=== PATIENT | female | born 1995 | race Caucasian/White ===

== ENCOUNTER 2018-03-04 17:57 | Emergency (ER) | payer OTHER ==
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
[2018-03-04] MEDS ORDERED: Azithromycin TAB* 250 MG PO ONE (20:37)
[2018-03-04] MEDS ORDERED: cefTRIAXone VIAL(*) 250 MG VIAL IM ONE (20:37)
[2018-03-04] MEDS ORDERED: Lidocaine 1%* 5 ML VIAL ONE (20:45)
[2018-03-04 22:24] VITALS: BP 129/63
== END 2018-03-04 22:22 | disposition home or self-care (01) ==
LOC: ED 17:57
DX: T76.21XA Adult sexual abuse, suspected, initial encounter (principal); J45.909 Unspecified asthma, uncomplicated
CPT/HCPCS: 36415; 84702; 96372; 99282; A9270-GY; J0696

== ENCOUNTER 2018-06-01 00:50 | Emergency (ER) | payer OTHER ==
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
[2018-06-01 05:53] VITALS: BP 110/60
== END 2018-06-01 05:56 | disposition home or self-care (01) ==
LOC: ED 00:50
DX: F10.129 Alcohol abuse with intoxication, unspecified (principal); R11.10 Vomiting, unspecified
CPT/HCPCS: 99282